=== PATIENT | female | born 1985 | race Caucasian/White ===

== ENCOUNTER 2016-11-04 21:57 | Emergency (ER) | payer OTHER ==
[~2016-11-04] VITALS: Ht 162.6 cm; Wt 102.6 kg
[~2016-11-04 21:57] MED LIST: ABILIFY20 MG PO; ALPRAZOLAM1 MG PO; ALPRAZOLAM2 MG PO; AMBIEN10 MG PO; AUGMENTIN875 MG PO; BIPOLAR MED; BUSPAR30 MG PO; CARAFATE1 GM PO; CLEOCIN300 MG PO; CYMBALTA60 MG PO; DEPAKOTE500 MG PO; EFFEXOR XR75 MG PO; EFFEXOR75 MG PO; FIORICET,ESG1 TABLET PO; HYDROXYZINE HCL25 M1 PO; IMITREX25 MG PO; INDERAL80 MG PO; KEFLEX500 MG PO; LAMICTAL100 MG PO; LAMICTAL25 MG PO; LAMOTRIGINE100 MG PO; LEVOTHROID75 MCG PO; LEVOTHYROXINE100 MCG PO; MEGACE20 MG PO; METHADONE10 MG PO; MOTRIN800 MG PO; NAPROSYN500 MG PO; NAPROXEN500 MG PO; NEURONTIN300 MG PO; NEXIUM40 MG PO; OXYCODONE HCL10 MG PO; OXYCODONE HCL15 MG PO; OXYCODONE HCL5 MG PO; OXYMORPHONE HCL20 MG PO; PERCOCET 5/31 TABLET PO; PERIDEX1 ML MM; QUETIAPINE FUMA25 MG PO; RANITIDINE HCL150 M1 PO; REGLAN10 MG PO; SEROQUEL100 MG PO; SEROQUEL12.5 MG PO; SEROQUEL50 MG PO; SYNTHROID112 MCG PO; TESSALON PERLE100 MG PO; TRAMADOL HCL50 MG PO; TRAZODONE HCL50 MG PO; XANAX XR2 MG PO; XANAX1 MG PO; XANAX2 MG PO; Xanax PO; ZANTAC150 MG PO
[2016-11-04 23:09] VITALS: BP 173/98
== END 2016-11-04 23:10 | disposition home or self-care (01) ==
LOC: EME 21:57 → RME 21:57
DX: G43.909 Migraine, unspecified, not intractable, without status migrainosus (principal); Z88.8 Allergy status to other drugs, medicaments and biological substances; Z88.0 Allergy status to penicillin; F17.200 Nicotine dependence, unspecified, uncomplicated
CPT/HCPCS: 99281; 99284; J0780; J1100; J1885; J7030

== ENCOUNTER 2017-12-10 22:40 | Emergency (ER) | payer OTHER ==
[~2017-12-10] VITALS: Ht 152.4 cm; Wt 102.4 kg
[2017-12-10] MEDS ORDERED: BACTRIM,SEPT1 TABLET PO (23:37)
[2017-12-11] VITALS: BP 143/77
== END 2017-12-11 00:01 | disposition home or self-care (01) ==
LOC: EME 22:40
DX: L03.211 Cellulitis of face (principal); Z88.0 Allergy status to penicillin
CPT/HCPCS: 99281; 99284